=== PATIENT | female | born 2000 | race African-American/Black ===

== ENCOUNTER 2021-11-09 17:31 | Emergency (ER) | payer SELFPAY ==
[2021-11-09 17:35] VITALS: BP 118/67; PULSE 82; RESP 16; TEMP 36.7; O2SAT 100
[2021-11-09 19:17] LABS: Basophils Absolute Auto 0.1 K/mm3 (0.0-0.1); Basophils Percent Auto 0.9 % (0.2-1.2); Eosinophils Absolute Auto 0.1 K/mm3 (0-0.3); Eosinophils Percent Auto 0.8 % (0-4.4); Hematocrit 33.5 % (37.0-47.0); Hemoglobin 10.7 g/dL (12.0-15.0); Immature Granulocyte Absolute 0.01 K/mm3 (0.00-0.031); Immature Granulocyte Percent A 0.2 % (0-0.5); Lymphocytes Absolute Auto 2.92 K/mm3 (0.9-3.2); Lymphocytes Percent Auto 44.9 % (18.3-44.2); Mean Corpuscular HGB Conc 31.9 g/dl (32-36); Mean Corpuscular Hemoglobin 24.7 pg (26-34); Mean Corpuscular Volume 77.2 fl (80-100); Mean Platelet Volume 9.5 fl (7.4-10.4); Monocytes Absolute Auto 0.5 K/mm3 (0.1-0.6); Monocytes Percent Auto 8.3 % (2.6-8.5); Neutrophils Absolute Auto 2.9 K/mm3 (1.3-6.7); Neutrophils Percent Auto 44.9 % (45.5-73.1); Platelet Count Result 394 k/mm3 (150-375); Red Blood Count 4.34 M/mm3 (4.2-5.4); Red Cell Distribution Width 16.5 % (11.5-14.5); White Blood Count 6.5 K/mm3 (4.5-10.0)
[2021-11-09 19:29] LABS: Alanine Aminotransferase 20 U/L (6-35); Albumin Level 5.1 g/dL (3.5-5.1); Alkaline Phosphatase 66 U/L (38-126); Anion Gap 18 mmol/L (8-16); Aspartate Amino Transferase 38 U/L (14-36); Bilirubin,Total 0.4 mg/dL (0.2-1.3); Blood Urea Nitrogen 10 mg/dL (7-17); Calcium 9.6 mg/dL (8.4-10.2); Carbon Dioxide 24 mmol/L (22-30); Chloride 101 mmol/L (98-107); Estimated Glomerular Filt Rate > 60; Glucose 72 mg/dL (65-110); Lipase 189 U/L (23-300); Potassium 3.6 mmol/L (3.4-5.0); Sodium 143 mmol/L (137-145)
[2021-11-09 19:33] LABS: Appearance Urine Clear (Clear); Bilirubin Urine Negative (Negative); Blood Urine Negative (Negative); Color Urine Yellow (Yellow); Glucose Urine UA Negative (Negative); Ketones Urine Negative (Negative); Leukocyte Esterase Ur Negative LEU/UL (Negative); Nitrate Urine Negative (Negative); Protein Urine Negative (Negative); Specific Grav Ur 1.015 (1.001-1.035); Urobilinogen Urine 0.2 mg/dL (<2.0); pH Urine 7.5 (5.0-9.0)
[2021-11-09 19:39] LABS: Add Urine Microscopic? NO
--- NOTE | 2021-11-09 23:17 | ED.NAVMDI ---
HPI - Nausea/Vomiting/Diarrhea General Chief complaint: Nausea/Vomiting/Diarrhea Stated complaint: diarrhea, shaking hands, irregular heartbeat Time Seen by Provider: 11/09/21 22:33 History of Present Illness HPI Narrative: This is a 21-year-old female who denies past medical history, who presented emergency department with multiple episodes of loose stools. She states earlier this morning she drank coffee with espresso, which she does not normally do, when she developed approximately 3-4 episodes of loose stools. During this process she also complained of 5 out of 10 epigastric abdominal pain without radiation tingling in the hands and palpitations. She has since improved. She denies bleeding from any source, loss of consciousness or chest pain. Related Data Allergies Allergy/AdvReac Type Severity Reaction Status Date / Time No Known Allergies Allergy Verified 11/09/21 17:33 Review of Systems Review of Systems: CONSTITUTIONAL: Denies fever, chills, or sweats. ENT: Denies rhinorrhea, congestion, sore throat, or otalgia. CARDIOVASCULAR: Denies chest pain, palpitations, or edema. RESPIRATORY: Denies cough or dyspnea. GASTROINTESTINAL: Abdominal pain, diarrhea denies nausea, vomiting, GENITOURINARY: Denies dysuria or hematuria. SKIN: Denies rash or itching. MUSCULOSKELETAL: Denies back pain, joint pain, or myalgia. NEUROLOGIC: Denies headache, numbness, dizziness, or weakness. PSYCHIATRIC: Denies anxiety or depression. Exam Narrative: GENERAL: Well-appearing, well-nourished, and in no acute distress. HEAD: Normocephalic, atraumatic. EYES: PERRLA and EOMI. ENT: Nares clear, no rhinorrhea or epistaxis. Mucous membranes moist. Oropharynx without tonsillar hypertrophy exudate or other lesions NECK: Supple. No adenopathy or masses. No carotid bruits or JVD CHEST: Clear to auscultation. No respiratory distress. No wheezes rales or rhonchi HEART: Regular rate and rhythm. No murmur heard. Normal peripheral pulses. ABDOMEN: Soft, nontender, nondistended, normal active bowel sounds. EXTREMITIES: Normal range of motion. No edema. SKIN: Warm, dry, no rash. NEURO: No focal deficits. Alert and oriented x3. PSYCH: Normal mood and affect. Course Course Emergency Course: 00:10 - Patient tolerated p.o. and states her abdominal pain is improved. Discussed return emergency precautions including signs/symptoms of acute abdomen and intractable vomiting. The patient voiced understanding and is comfortable to plan. All questions answered to her satisfaction. Vital Signs Vital signs: Vital Signs Temperature 98.0 F 11/09/21 17:35 Pulse Rate 82 11/09/21 17:35 Respiratory Rate 16 11/09/21 17:35 Blood Pressure 118/67 11/09/21 17:35 Pulse Oximetry 100 11/09/21 17:35 Oxygen Delivery Room Air 11/09/21 17:35 Temperature 98.0 F 11/09/21 17:35 Pulse Rate 82 11/09/21 17:35 Respiratory Rate 16 11/09/21 17:35 Blood Pressure 118/67 11/09/21 17:35 Pulse Oximetry 100 11/09/21 17:35 Oxygen Delivery Room Air 11/09/21 17:35 MDM - Nausea/Vomiting/Diarrhea MDM Narrative Medical decision making narrative: Plan: Labs, test, Pepcid, strep and COVID, reassess Differential Diagnosis Differential diagnosis: Likely other (, enteritis, COVID, influenza, caffeine side effect, metabolic abnormality, other) Lab Data Result diagrams: 11/09/21 19:03 11/09/21 19:03 Labs: Lab Results 11/09/21 11/09/21 11/09/21 Range/Units 19:03 19:03 19:25 WBC 6.5 (4.5-10.0) K/mm3 RBC 4.34 (4.2-5.4) M/mm3 Hgb 10.7 L (12.0-15.0) g/dL Hct 33.5 L (37.0-47.0) % MCV 77.2 L (80-100) fl MCH 24.7 L (26-34) pg MCHC 31.9 L (32-36) g/dl RDW 16.5 H (11.5-14.5) % Plt Count 394 H (150-375) k/mm3 MPV 9.5 (7.4-10.4) fl Immature Gran % (Auto) 0.2 (0-0.5) % Neut % (Auto) 44.9 L (45.5-73.1) % Lymph % (Auto) 44.9 H (18.3-44.2) % Mon
[2021-11-09] MEDS: FAMOTIDINE 20 MG TABLET PO (23:23)
[2021-11-10 00:49] LABS: Influenza A QL RT-PCR Negative (Negative); Influenza B QL RT-PCR Negative (Negative); SARS-CoV-2 RNA PCR Negative
== END 2021-11-10 00:32 | disposition home or self-care (01) ==
PROVIDERS: Emergency Medicine; Emergency Provider Preventive Medicine Aerospace Medicine
DX: R19.7 Diarrhea, unspecified (principal); D50.9 Iron deficiency anemia, unspecified; Z20.822 Contact with and (suspected) exposure to COVID-19
CPT/HCPCS: 36415; 80053; 81003; 81025; 83690; 85025; 87502; 99283; A9270; C9803; U0003; U0005

== ENCOUNTER 2022-02-11 16:29 | Emergency (ER) | payer SELFPAY ==
[2022-02-11 18:05] VITALS: BP 129/70; PULSE 91; RESP 18; TEMP 36.6; O2SAT 100
--- NOTE | 2022-02-11 18:28 | ED.SKABFB ---
HPI - Skin/Abscess/Foreign Bdy General Chief complaint: Skin/Abscess/Foreign Body Stated complaint: pos bite rt arm Time Seen by Provider: 02/11/22 18:37 Source: patient and RN notes reviewed Mode of arrival: ambulatory Limitations: no limitations History of Present Illness HPI narrative: 21-year-old female presents concern for possible insect bite to her right forearm. Reports she woke up this morning with the itching painful area on her forearm, noticed later in the morning it was swollen and red. She reports intermittent headache and malaise. She denies fever, aches, chills. She denies drainage from the area. complaint: insect bite/sting Related Data Allergies Allergy/AdvReac Type Severity Reaction Status Date / Time No Known Allergies Allergy Verified 02/11/22 18:14 Review of Systems Review of Systems: CONSTITUTIONAL: Denies malaise, chills, sweats, or fever. EYES: Denies redness, or discharge. ENT: Denies rhinorrhea, congestion, swollen lips, swollen tongue CARDIOVASCULAR: Denies chest pain, palpitations, or edema. RESPIRATORY: Denies cough or dyspnea. GASTROINTESTINAL: Denies abdominal pain, nausea, vomiting SKIN: Reports tender itchy bump on her right forearm MUSCULOSKELETAL: Denies joint pain or myalgia. NEUROLOGIC: Reports intermittent headache. All systems reviewed & are unremarkable except as noted in HPI and below PMFSH Comments At time of signature, agree with nursing past medical, surgical, social and family history. There is no relevant family history pertinent to the presenting complaint Exam Narrative: GENERAL: Well-appearing, well-nourished, and in no acute distress. HEAD: Normocephalic, atraumatic. EYES: PERRLA, conjunctivae clear, and EOMI. ENT: Mucous membranes moist. Oropharynx without edema, erythema or lesions. NECK: Supple. No lymphadenopathy CHEST: Clear to auscultation. No respiratory distress. HEART: Regular rate and rhythm. SKIN: Warm, dry. Approximately 5 cm round raised erythematous area with sharp edges and with a central papule, nonfluctuant with 3 red streaks each approximately 3 cm or less. No vesicles, bullae, necrosis, ecchymosis, crepitus noted. NEURO: Alert and oriented x3. PSYCH: Normal mood and affect Course Course Emergency Course: Patient is aware of diagnosis, understands and agrees to treatment plan. Anticipatory guidance given. Patient agrees to follow-up as directed and is aware of reasons to seek care at the emergency department. Portions of this record may have been created with voice recognition software Level of Care: Express Care Visit Vital Signs Vital signs: Vital Signs Temperature 97.8 F 02/11/22 18:05 Pulse Rate 91 02/11/22 18:05 Respiratory Rate 18 02/11/22 18:05 Blood Pressure 129/70 02/11/22 18:05 Pulse Oximetry 100 02/11/22 18:05 Oxygen Delivery Room Air 02/11/22 18:05 Temperature 97.8 F 02/11/22 18:05 Pulse Rate 91 02/11/22 18:05 Respiratory Rate 18 02/11/22 18:05 Blood Pressure 129/70 02/11/22 18:05 Pulse Oximetry 100 02/11/22 18:05 Oxygen Delivery Room Air 02/11/22 18:05 Reviewed. MDM - Skin/Abscess/Foreign Bdy MDM Narrative Medical decision making narrative: Does not appear at this time to be erythema multiforme, bullous, SJS, TEN; no evidence at this time to suggest RMSF, NSTI, endocarditis or Lyme disease; patient looks well, nontoxic and is tolerating oral intake; no neurologic signs or symptoms; no headache, photophobia or neck pain; afebrile. Patient does not have history of of penetrating trauma, laceration, blunt trauma, recent surgery, immunosuppression, malignancy, obesity, alcoholism, corticosteroid use. Discussed the importance of follow-up, patient agrees; question, cellulitis versus necrotizing soft tissue infection versus abscess. Critical Care Time Critical Care Time Critical Care Time: No Discharge Plan Discharge Clinical Impression: Localized infection of skin P
== END 2022-02-11 18:52 | disposition home or self-care (01) ==
PROVIDERS: Emergency Provider Nurse Practitioner
DX: L08.9 Local infection of the skin and subcutaneous tissue, unspecified (principal)
CPT/HCPCS: 99213; G0463

== ENCOUNTER 2022-12-17 15:55 | Emergency (ER) | payer SELFPAY ==
[2022-12-17 16:19] VITALS: BP 124/61; PULSE 75; RESP 16; TEMP 36.6; O2SAT 98
--- NOTE | 2022-12-17 16:37 | ED.GENADULT ---
HPI - General Adult General Chief complaint: Upper Respiratory Infection Stated complaint: throat hurts,lost voice Source: patient Mode of arrival: ambulatory Limitations: no limitations History of Present Illness HPI narrative: Patient presents for evaluation of hoarse voice and sore throat with symptom onset today. She reports fatigue that she has experienced over the last few weeks. She also endorses hot flashes, chills, and occasional cough. One of her coworkers had strep throat about 1-2 weeks ago. No other sick contacts to her knowledge. She does not smoke. She has been consuming tea and using throat lozenges with mild improvement in her symptoms thereafter. Related Data Home Medications Medication Instructions Recorded Confirmed No Home Medications 12/17/22 12/17/22 Allergies Allergy/AdvReac Type Severity Reaction Status Date / Time No Known Allergies Allergy Verified 12/17/22 16:16 Review of Systems Review of Systems: CONSTITUTIONAL: Reports hot flashes and chills. Reports fatigue. Denies objective fever. EYES: Denies visual changes, redness, or discharge. ENT: Reports sore throat and hoarse voice. Denies rhinorrhea, congestion, or otalgia. CARDIOVASCULAR: Denies chest pain, palpitations, or edema. RESPIRATORY: Reports occasional cough. Denies dyspnea. GASTROINTESTINAL: Denies abdominal pain, nausea, vomiting, or diarrhea. GENITOURINARY: Denies dysuria or hematuria. SKIN: Denies rash or itching. MUSCULOSKELETAL: Denies back pain, joint pain, or myalgia. NEUROLOGIC: Denies headache, numbness, dizziness, or weakness. PSYCHIATRIC: Denies anxiety or depression. PMFSH Past Medical History Medical History No pertinent past medical history Surgical History Surgical History No pertinent past surgical history Family History Family History Mother Family history non-contributory Social History Social History Smoking status: Never smoker Alcohol intake: never Substance use: never Spiritual care concerns: No Exam Narrative: GENERAL: Well-appearing, well-nourished, and in no acute distress. HEAD: Normocephalic, atraumatic. EYES: PERRLA and EOMI. ENT: Nares clear, no rhinorrhea or epistaxis. Mucous membranes moist. Oropharynx without tonsillar hypertrophy exudate or other lesions. Bilateral TMs pearly dutta nonbulging NECK: Supple. No adenopathy or masses. No carotid bruits or JVD CHEST: Clear to auscultation. No respiratory distress. No wheezes rales or rhonchi HEART: Regular rate and rhythm. No murmur heard. Normal peripheral pulses. ABDOMEN: Soft, nontender, nondistended, normal active bowel sounds. EXTREMITIES: Normal range of motion. No edema. SKIN: Warm, dry, no rash. NEURO: No focal deficits. Alert and oriented x3. PSYCH: Normal mood and affect. Course Course Emergency Course: This is a 22-year-old female who presented for evaluation of sick symptoms. COVID, influenza, strep and mono were all negative. Exam is consistent with viral URI. Increase hydration. Tea with honey may help. Cepacol lozenges for symptom management as well as other [id number] agents. Follow-up with primary provider. Go to the ER for worsening symptoms. Patient in agreement with plan of care. Level of Care: Express Care Visit Vital Signs Vital signs: Vital Signs Temperature 36.6 C 12/17/22 16:19 Pulse Rate 75 12/17/22 16:19 Respiratory Rate 16 12/17/22 16:19 Blood Pressure 124/61 12/17/22 16:19 Pulse Oximetry 98 12/17/22 16:19 Oxygen Delivery Room Air 12/17/22 16:19 Temperature 36.6 C 12/17/22 16:19 Pulse Rate 75 12/17/22 16:19 Respiratory Rate 16 12/17/22 16:19 Blood Pressure 124/61 12/17/22 16:
== END 2022-12-17 17:15 | disposition home or self-care (01) ==
PROVIDERS: Emergency Provider Nurse Practitioner
DX: J06.9 Acute upper respiratory infection, unspecified (principal); J04.0 Acute laryngitis; Z20.822 Contact with and (suspected) exposure to COVID-19
CPT/HCPCS: 36416; 86308; 87081; 87426; 87804; 87880; 99213; C9803; G0463